=== PATIENT | male | born 1985 ===

== ENCOUNTER → 2017-11-29 | Outpatient (CLI) | payer MEDICAID ==
--- NOTE | 2017-11-29 11:24 | NOWCEV ---
[facility] OUTPATIENT REHABILITATION SERVICES [facility]INIC EVALUATION AND LETTER OF JUSTIFICATION Patient Name: MALIHA RONDON Physician: MD Xiang Mahajan Date: 11/29/17 Therapist: More Villa PT,MSPT Date of : 1985 MR#: [id number] Contact: Svetlana Rondon (mother) Subscriber: MALIHA RONDON Primary Ins: [employer] Subscriber #: [id number] EVALUATION FINDINGS Medical history - Maliha is a 32y/o male born with cerebral palsy (CP). 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 His current ultra light weight MWC which he utilizes for all community mobility is 6y/o and deteriorating to the point where it is no longer meeting his needs. Maliha was referred to this clinic by his doctor to have recommendations made for the most medically appropriate wheelchair to meet his needs. Functional Mobility - Maliha is not able to ambulate, even with an AD such as a walker, crutches or cane due to significant spasticity. He uses a PWC for all mobility and MRADLs within the home. He does report that he will intermittently crawl to access his home if not in his chair. Maliha uses an ultra light weight MWC for all community mobility which he self propels with B UEs. He is able to self propel up/down most ramps without assistance, but does require assist if a ramp is too steep or if a a curb cut has too much of a lip. To complete independent transfers, Maliha always transitions to/from the L side of his chair. He maintains a crouched position throughout the transfer with B feet in PF and inversion. He holds onto his armrest throughout the transfer for balance. When moving back to his chair, he transitions with significant momentum to limit the amount of motor control required. He is modified I with bed mobility. He always rolls L prior to sitting up, and moves within tonal patterns. Sitting EOM, Maliha sits back with calves supported by the table to avoid sliding off the mat due to his extensor tone. Head/Trunk control - Maliha holds his head an an extended position due to his abnormal tone. Maliha does experience extensor tone throughout his trunk. During a spasm, his extensor tone is strong enough to push his pelvis forward in his wheelchair. Motor involvement - Maliha has significant spasticity throughout his body (both flexor and extensor tone). When seated in his chair, he experiences extensor tone where his LEs extend to the point where he has broken a number of foot plates, and his body slides forward in his chair. Maliha is not able to move his LEs outside of synergistic flexor or extensor patterns. Standardized MMT was not able to be performed on Maliha's LEs due to his severe spasticity. He is able to move his legs through partial ROM in non-functional patterns. He is not able to move his legs independently from one another. Maliha has 4 to 4-/5 strength throughout his UEs. He demonstrates poor motor control in his UEs when performing all functional tasks, and has intermittent spasms which impact his whole body. Maliha has significant tightness in B hamstrings as well as achilles. Posture - Maliha sits with a posterior pelvic tilt, rounded protracted shoulders. He hold his head in significant extension. Speech requires considerable effort and causes his neck, head and legs to extend. He sits with his feet in PF in inversion with his ankles frequently crossed due to his hypertonicity. Skin Sensation - Maliha's sensation is intact to light touch. He does report some skin breakdown between the folds of his stomach from sitting with poor posture. Endurance - Maliha can self propel his ultra light weight MWC up to 1mi without assistance on relatively level surfaces. ADLs - Maliha is modified independent with ADLs from a wheelchair level. Cognitive/Social - Maliha lives with his parents in a home with elevator access between floors. 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 He will intermittently go into the community independently or with friends. Current wheelchair - Maliha is currently utilizing a Quickie 2 ultra light weight MWC with a Jaylite cushion and Matrix backrest. This chair is 6y/o and showing significant deterioration from age and heavy use. The frame on the chair is torqued as Maliha only transfers in from the L side of the chair with a great deal of force. The L wheel is rubbing against the frame of the chair and needs a new ami. He no longer utilizes the foot plates on the chair, as he has broken them too many times with his extensor tone. Since his feet are not on the foot plates, is sliding forward on his cushion and has to continuously reposition to stay in his chair. The anterior portion of the seat cushion is compressed and the cushion is sliding backward between the back canes. MEDICAL and FUNCTIONAL NEED/OBJECTIVES To replace Maliha's current ultra light weight MWC and seating system which is 6 years old and no longer meeting his needs to allow for safe access to the community. EQUIPMENT RECOMMENDATIONS AND JUSTIFICATIONS The following recommendations are believed to be the most cost effective way to meet the patients medical and functional needs. * Ultralight MWC (quickie 2): Needed to replace Maliha's current ultralight weight MWC which is 6y/o and deteriorating to the point where it is no longer meeting his needs due to heavy use. See above for details re: condition of current chair. Maliha is not able to ambulate, even with an AD such as a walker , crutches or cane. He is not able to utilize a std weight or even light weight model MWC for several reasons. First, the position of the propulsion wheel on these chairs is too far back for Maliha to effectively reach with his poor motor control. Maliha requires an adjustable ami position to place his shoulders/UEs at a greater advantage to create an efficient stroke. Without the forward position of the rear ami, Maliha will not be able to independently self propel his chair up ramps and on uneven surfaces due to his poor motor control. The adjustable rear ami is only available on ultra light weight models. Second, the weight of a std or light weight model chair is too heavy for Maliha to be able to self propel up ramps and on uneven surfaces. Without an ultra light weight MWC, Maliha will lose independence and be reliant on caregivers for all community access. In an ultra light weight MWC Maliha will maintain his independence to self propel at a community level. Maliha is able to safely and independently transfer to/from his MWC. * Dynamic foot rest system: Necessary in order to manage Maliha's extensor tone and spasms. Maliha is not able to utilize standard foot plates, as they are not strong enough to withstand the forces he places through them during frequent extensor spasms. This causes them to break. Since standard foot plates do not meet Maliha's needs, he has stopped using them. This causes Maliha's toes to drag when self propelling, and his pelvis to slide forward in his seat. Therefore he is not supported by his seating system and has to continually reposition to ensure that he does not slide forward out of his chair. Additionally, without the use of foot plates to manage his position, Maliha reports that his extensor tone is progressing and he is getting tighter in his feet and LEs. The dynamic foot plate system will be able to absorb the energy transmitted by Maliha's extensor tone and spasms without risk of breaking the foot plate. This will allow Maliha to maintain optimal positioning in his chair to maximize his ability to self propel and to manage his tone so that additional medication is not required. * Toe loops: Needed to maintain Maliha's foot on his foot plate during extensor spasms. * Anti-thrust cushion: Needed to keep Maliha's pelvis from sliding forward as he has extensor tone that is elicited with all movement, including propulsion. This will optimize Maliha's posture allowing for more efficient propulsion at a community level, as well as protect Maliha from sheering forces that can lead to skin breakdown. This cannot be accomplished with an off the shelf cushion. * Posterior positioning backrest: Needed to work in conjunction with Maliha's seat cushion to optimize his posture and manage his extensor tone. This in turn will maximize Maliha's ability to independently self propel at a community level and prevent risk of skin breakdown. An off the self backrest is not appropriate because it would not be able to control Maliha's strong extensor tone , and would in turn limit his ability perform independent propulsion. * Adjustable height arm rests: Needed to position Maliha's arm rests at the appropriate height in order to allow him to safely and independently perform transfers. Safe and independent transfers would not be possible without the adjustable height arm rests. * Brake extensions: Needed to allow Maliha to independently lock his brakes prior to transferring or performing functional tasks from his chair. Maliha is not able to lock his brakes without the extensions due to poor motor control in his UEs. * Folding back canes: Needed to allow Maliha's chair to be folded in order to fit in his mother's vehicle. * Transit tie downs: Needed to allow Priyas chair to be secured when utilizing transit services such as via to attend his volunteer job. * Padded pelvic belt: Needed to secure Maliha's pelvis in order to manage his extensor tone and spasms which cause his pelvis to slide forward in his chair. * Anti-tippers: Needed to prevent Maliha's chair from tipping over backward during his frequent extensor spasms. * Flat free inserts: Needed as Maliha is unable to perform any independent maintenance on his chair such as changing a flat or maintaining the air pressure in his tires due to his poor motor control. * Soft roll casters: Needed for increased durability and vibration dampening to allow Maliha to propel over uneven surfaces without increasing his tone/ spasticity. * Under seat tote: Needed to allow Maliha to carry medical supplies as well as his phone when self propelling in the community. * Cup medina: Needed to allow Maliha to independently carry a drink to stay hydrated when propelling at a community level. Maliha is not able to self propel while carrying items in his lap due to his spasticity and poor motor control. These recommendations are based on the likelihood that Maliha will require the use of a wheelchair for mobility for the rest of his life. If you have any questions or concerns regarding the stated recommendations, please feel free to contact the therapist at . Thank you for your cooperation in obtaining the necessary equipment for this patient. SONALI Mack
== END ==
PROVIDERS: ATTEND Family Medicine
DX: G80.9 Cerebral palsy, unspecified (principal)
CPT/HCPCS: 97162-GP